=== PATIENT | female | born 1995 | race Caucasian/White ===

== ENCOUNTER 2018-08-11 10:51 | Emergency (ER) | payer OTHER ==
[2018-08-11] MEDS ORDERED: Ondansetron INJ* 2 MG/ML VIAL IV ONE (11:29)
[2018-08-11] MEDS ORDERED: Ketorolac INJ* 30 MG/ML 1 ML VIAL IV PUSH ONE (11:29)
[2018-08-11] MEDS ORDERED: NS 0.9% 1000 ML* 1,000 ML IV ONE (11:29)
--- NOTE | 2018-08-11 11:29 | ED ---
Abdominal Pain/Female - HPI Summary HPI Summary: This patient is a 22 year old F presenting to [facility] with a chief complaint of sharp R flank pain that began one week ago. The patient rates the pain 6/10 in severity. Symptoms aggravated by laying on back and eating. Symptoms alleviated by nothing. Patient reports foul smelling urine and chills. Patient denies dysuria, vaginal bleeding, vaginal discharge, vomiting, and fever. Pt denies a history of UTI. Pt denies any concern for STD. - History of Current Complaint Chief Complaint: EDFlankPain Stated Complaint: BACK PAIN Time Seen by Provider: 08/11/18 11:01 Hx Obtained From: Patient Hx Last Menstrual Period: 07/28/2018 ?: No Onset/Duration: Sudden Onset, Lasting Weeks, Still Present Timing: Constant Severity Initially: Moderate Severity Currently: Moderate Pain Intensity: 6 Pain Scale Used: 0-10 Numeric Location: Flank Radiates: No Character: Sharp Aggravating Factor(s): Food, Other: - Laying on back Alleviating Factor(s): Nothing Associated Signs and Symptoms: Positive: Other: - Positive foul smelling urine and chills. Negative dysuria, vaginal bleeding, vaginal discharge, vomiting, and fever. Allergies/Adverse Reactions: Allergies Allergy/AdvReac Type Severity Reaction Status Date / Time shellfish derived Allergy Anaphylatic Verified 08/11/18 10:53 Shock PMH/Surg Hx/FS Hx/Imm Hx Previously Healthy: Yes Opthamlomology History: Denies: Hx Legally Blind EENT History: Denies: Hx Deafness - Surgical History Surgery Procedure, Year, and Place: Negative Hx Anesthesia Reactions: No Infectious Disease History: No Infectious Disease History: Denies: Traveled Outside the [place] in Last 30 Days - Family History Known Family History: Positive: Cardiac Disease, Diabetes - Social History Occupation: Student Lives: With Family Alcohol Use: Occasionally Hx Substance Use: Yes Substance Use Type: Reports: Marijuana Hx Tobacco Use: Yes Smoking Status (MU): Former Smoker Review of Systems Positive: Chills. Negative: Fever Positive: Other - Positive flank pain. Negative: Vomiting Genitourinary: Other - Positive "foul smelling" urine. Negative vaginal discharge and vaginal bleeding Negative: dysuria All Other Systems Reviewed And Are Negative: Yes Physical Exam - Summary Physical Exam Summary: GENERAL: Patient is a well-developed and nourished F who is lying comfortable in the stretcher. Patient is not in any acute respiratory distress. HEAD AND FACE: Normocephalic EYES: PERRLA, EOMI x 2. EARS: Hearing grossly intact. MOUTH: Oropharynx within normal limits. NECK: Supple, trachea is midline, no adenopathy, no JVD, no carotid bruit. CHEST: Symmetric, no tenderness at palpation LUNGS: Clear to auscultation bilaterally. No wheezing or crackles. CVS: Regular rate and rhythm, S1 and S2 present, no murmurs or gallops appreciated. ABDOMEN: Soft, non-tender. Bowel sounds are normal. No abdominal abnormal pulsations. EXTREMITIES: Full ROM in all major joints, no edema, no cyanosis or clubbing. NEURO: Alert and oriented x 3. No acute neurological deficits. Speech is normal and follows commands. SKIN: Dry and warm Triage Information Reviewed: Yes Vital Signs On Initial Exam: Initial Vitals Temp Pulse Resp BP Pulse Ox 99 F 85 16 132/80 99 08/11/18 10:54 08/11/18 10:54 08/11/18 10:54 08/11/18 10:54 08/11/18 10:54 Vital Signs Reviewed: Yes Diagnostics - Vital Signs Vital Signs Temp Pulse Resp BP Pulse Ox 08/11/18 10:54 99 F 85 16 132/80 99 - Laboratory Result Diagrams: 08/11/18 12:05 08/11/18 12:05 Lab Statement: Any lab studies that have been ordered have been reviewed, and results considered in the medical decision making process. - Radiology Pelvis XR Radiology Interpretation Completed By: Radiologist - Pelvis XR reveals, per radiologist, no radiographically apparent abnormality of the pelvis or hips in the AP projection. ED physician has reviewed this radiology report. Lumbar Spine XR Radiology Interpretation Completed By: Radiologist - Lumbar spine XR reveals, per radiologist, no evidence of fracture or subluxation. ED physician has reviewed this radiology report. Re-Evaluation - Re-Evaluation First Eval Re-Evaluation Time: 13:08 Change: Improved Comment: Discussed results and plan of care with pt Abdominal Pain Fem Course/Dx - Course Course Of Treatment: This patient is a 22 year old F presenting to [facility] with a chief complaint of sharp R flank pain that began one week ago. Physical Exam Findings: Nml. Pelvis XR reveals, per radiologist, no radiographically apparent abnormality of the pelvis or hips in the AP projection. Lumbar spine XR reveals , per radiologist, no evidence of fracture or subluxation. Blood work and UA obtained. In the ED course the patient was given Toradol, fluids, and Zofran. I discussed results with patient and she reports feeling better. She is hemodynamically stable and safe for discharge. Strict return precautions given and she will otherwise follow up with her PCP. - Diagnoses Provider Diagnoses: Back pain Discharge - Sign-Out/Discharge Documenting (check all that apply): Patient Departure - Discharge home - Discharge Plan Condition: Stable Disposition: HOME Prescriptions: Cyclobenzaprine TAB* [Flexeril 10 MG TAB*] 10 mg PO TID #15 tab Ibuprofen 600 mg PO TID #20 tablet Patient Education Materials: Cyclobenzaprine (By mouth), Back Pain (ED) Referrals: [facility] [Outside] Additional Instructions: Follow up with your primary care physician in 1-3 days. RETURN TO THE EMERGENCY DEPARTMENT FOR NEW OR WORSENING SYMPTOMS - Billing Disposition and Condition Condition: STABLE Disposition: Home - Attestation Statements Scribe Documentation Reviewed: Yes
[2018-08-11] MEDS ORDERED: Ammonia Inhalant* 1 EA AMP ONE (11:42)
[2018-08-11 12:18] LABS: ABS Basophils 0 10^3/ul (0-0.2); ABS Eosinophils 0.1 10^3/ul (0-0.6); ABS Lymphocytes 2.7 10^3/ul (1.0-4.8); ABS Monocytes 0.4 10^3/ul (0-0.8); ABS Neutrophils 2.9 10^3/ul (1.5-7.7); ABS Nucleated RBC 0 10^3/ul; Eosinophil % 2.3 % (0-6); Hematocrit 41 % (35-47); Hemoglobin 13.8 g/dl (12.0-16.0); Lymphocyte % 43.4 % (25-47); Mean Corpuscular HGB Conc 34 g/dl (31-36); Mean Corpuscular Hemoglobin 28 pg (27-31); Mean Corpuscular Volume 82 fL (80-97); Mean Platelet Volume 8.8 um3 (7.4-10.4); Nucleated Red Blood Cells % 0.1; Platelet Count 206 10^3/ul (150-450); Red Cell Distribution Width 14 % (10.5-15); White Blood Count 6.3 10^3/ul (3.5-10.8)
[2018-08-11 12:27] LABS: Urine Appearance Clear; Urine Blood Negative (Negative); Urine Color Yellow; Urine Ketones Negative (Negative); Urine Protein Negative (Negative); Urine Specific Gravity 1.018 (1.010-1.030); Urine Urobilinogen Negative (Negative)
[2018-08-11 12:34] LABS: EGFR Non-African American 115.1 (>60)
--- NOTE | 2018-08-11 14:33 | RAD ---
INDICATION: Atraumatic right back pain COMPARISON: None. TECHNIQUE: 4 views of the lumbar spine were obtained. FINDINGS: The vertebra are in normal alignment. No fracture is seen. Disc spaces appear maintained. IMPRESSION: No evidence of fracture or subluxation.
[2018-08-11 14:34] VITALS: BP 111/78
--- NOTE | 2018-08-11 14:34 | RAD ---
INDICATION: Low back pain TECHNIQUE: An AP view of the pelvis was obtained. FINDINGS: The bones are in normal alignment. No fracture is seen. Joint spaces appear maintained. IMPRESSION: No radiographically apparent abnormality of the pelvis or hips in the AP projection.
== END 2018-08-11 15:01 | disposition home or self-care (01) ==
LOC: ED 10:51
DX: M54.9 Dorsalgia, unspecified (principal); Z87.891 Personal history of nicotine dependence
CPT/HCPCS: 36415; 72110; 72170; 80053; 81003; 83605; 84702; 85025; 86141; 96374; 96375; 99282; A9270-GY; J1885; J2405

== ENCOUNTER 2018-11-03 11:50 | Emergency (ER) | payer OTHER ==
[2018-11-03 13:36] VITALS: BP 00/00
--- NOTE | 2018-11-03 14:06 | UC ---
Complaint Female HPI - HPI Summary HPI Summary: patient has vaginal itch and slight burning for 4-5 days. did start using OTC monistat but didn't help until today (slightly) no odor, white discharge is sexually active with male-uses condoms - History Of Current Complaint Chief Complaint: UCGU Stated Complaint: PAIN, DISCOMFORT, ITCHINESS (PERSONAL) Time Seen by Provider: 11/03/18 13:30 Hx Obtained From: Patient Hx Last Menstrual Period: 07/28/2018 ?: No Onset/Duration: Gradual Onset Timing: Constant Severity Initially: Mild Severity Currently: Moderate Pain Intensity: 4 Character: Burning, Not Applicable - itch Aggravating Factor(s): Nothing Alleviating Factor(s): Nothing Associated Signs And Symptoms: Positive: Negative - Allergies/Home Medications Allergies/Adverse Reactions: Allergies Allergy/AdvReac Type Severity Reaction Status Date / Time shellfish derived Allergy Anaphylatic Verified 11/03/18 13:35 Shock PMH/Surg Hx/FS Hx/Imm Hx Previously Healthy: Yes - Surgical History Surgical History: None Surgery Procedure, Year, and Place: Negative - Family History Known Family History: Positive: Cardiac Disease, Diabetes - Social History Occupation: Student Lives: With Family Alcohol Use: Occasionally Substance Use Type: Marijuana Substance Use Comment - Amount & Last Used: daily Smoking Status (MU): Current Some Day Smoker Review of Systems All Other Systems Reviewed And Are Negative: Yes Constitutional: Positive: Negative. Negative: Fever Skin: Positive: Negative Gastrointestinal: Negative: Abdominal Pain Genitourinary: Positive: Vaginal/Penile Itching. Negative: Dysuria, Hematuria, Frequency Neurological: Positive: Negative Psychological: Positive: Negative Is Patient Immunocompromised?: No Physical Exam Triage Information Reviewed: Yes Appearance: Well-Appearing, No Pain Distress, Well-Nourished Vital Signs: Initial Vital Signs Temp 97.9 F 11/03/18 13:29 Pulse 79 11/03/18 13:29 Resp 18 11/03/18 13:29 BP 00/00 11/03/18 13:29 Pulse Ox 100 11/03/18 13:29 Vital Signs Reviewed: Yes Respiratory Exam: Normal Cardiovascular Exam: Normal Psychological Exam: Normal Skin Exam: Normal Complaint Female Dx - Differential Dx/Diagnosis Differential Diagnosis/HQI/PQRI: Sexually Transmitted Disease, Urinary Tract Infection, Other - vaginitis Provider Diagnosis: Vaginitis Discharge - Sign-Out/Discharge Documenting (check all that apply): Patient Departure All imaging exams completed and their final reports reviewed: No Studies - Discharge Plan Condition: Good Disposition: HOME Prescriptions: Fluconazole [Diflucan 150 MG (NF)] 150 mg PO ONCE #1 tab Patient Education Materials: Vaginitis (ED) Referrals: No Primary Care Phys,NOPCP [Primary Care Provider] - Additional Instructions: take diflucan as prescribed follow-up with [facility] if no better 3-4 days - Billing Disposition and Condition Condition: GOOD Disposition: Home
== END 2018-11-03 14:18 | disposition home or self-care (01) ==
LOC: UCEAST 11:50
DX: N76.0 Acute vaginitis (principal); F17.200 Nicotine dependence, unspecified, uncomplicated; Z91.013 Allergy to seafood
CPT/HCPCS: 99212; G0463